=== PATIENT | female | born 1985 | race African-American/Black ===

== ENCOUNTER 2016-09-14 12:11 | Emergency (ER) | payer OTHER ==
[2016-09-14 12:17] VITALS: BP 114/71; BMI 27.9
[2016-09-14] MEDS ORDERED: ACETAMINOPHEN 325 MG TABLET (FP) PO ONE (12:56)
[2016-09-14] MEDS ORDERED: ACETAMINOPHEN 325 MG TABLET (FP) ONE (13:07)
--- NOTE | 2016-09-14 13:20 | PDOC ---
History of Present Illness - General Chief Complaint: Cold Symptoms Stated Complaint: FEVER, HEADACHE Time Seen by Provider: 09/14/16 12:39 History Source: Patient - History of Present Illness Timing/Duration: reports: other Associated Symptoms: reports: cough, fever/chills, headache, muscle aches. denies: earache, facial pain, nasal congestion, nasal drainage, shortness of breath, sore throat Past History - Past Medical History Allergies/Adverse Reactions: Allergies Allergy/AdvReac Type Severity Reaction Status Date / Time No Known Allergies Allergy Verified 09/14/16 12:17 Home Medications: Ambulatory Orders NK [No Known Home Medication] 09/14/16 Asthma: No Cancer: No Cardiac Disorders: No Diabetes: No HTN: No Suicide Attempt (Hx): No Seizures: No Thyroid Disease: No Other medical history: denies - Reproductive History (#): 6 Para: 3 - Immunization History Immunization Up to Date: Yes - Psycho/Social/Smoking Cessation Hx Anxiety: No Suicidal Ideation: No Smoking Status: No Smoking History: Never smoked Have you smoked in the past 12 months: No Number of Cigarettes Smoked Daily: 2 Information on smoking cessation initiated: No 'Breaking Loose' booklet given: 01/13/16 Hx Alcohol Use: No Drug/Substance Use Hx: No Substance Use Type: None Hx Substance Use Treatment: No Review of Systems - Review of Systems Constitutional: Yes: Chills, Fever, Malaise HEENTM: Yes: Throat Pain. No: Ear Pain Respiratory: Yes: Cough. No: Shortness of Breath ABD/GI: No: Diarrhea, Nausea, Vomiting *Physical Exam - Vital Signs Last Vital Signs Temp Pulse Resp BP Pulse Ox 100.7 F H 107 H 18 114/71 100 09/14/16 12:15 09/14/16 12:15 09/14/16 12:15 09/14/16 12:15 09/14/16 12:15 - Physical Exam General Appearance: Yes: Appropriately Dressed. No: Apparent Distress HEENT: positive: Normal Voice. negative: Scleral Icterus (R), Scleral Icterus ( L) Neck: positive: Supple. negative: Lymphadenopathy (R), Lymphadenopathy (L) Respiratory/Chest: positive: Lungs Clear, Normal Breath Sounds. negative: Respiratory Distress Cardiovascular: positive: S1, S2, Tachycardia Gastrointestinal/Abdominal: positive: Soft. negative: Tender Integumentary: positive: Dry, Warm Neurologic: positive: Fully Oriented, Alert, Normal Mood/Affect ED Treatment Course - Medications Given in the ED: ED Medications Discontinued Medications Generic Name Dose Route Start Last Admin Trade Name Nisa PRN Reason Stop Dose Admin Acetaminophen 650 mg 09/14/16 12:56 09/14/16 13:00 Tylenol - PO 09/14/16 12:57 650 mg ONCE ONE Administration Medical Decision Making - Medical Decision Making 09/14/16 13:13 31-year-old female, no significant history, here with body aches with headache, sore throat, cough and fever that started suddenly 3 days ago. No shortness of breath, nausea, vomiting, diarrhea or rash. Denies any sick contacts. Patient well-appearing with low-grade fever in ED, rest of exam unremarkable. Most likely viral syndrome, rule out influenza. Antipyretic in ED 09/14/16 13:14 09/14/16 13:17 09/14/16 14:57 Vitals improved. Dc w/ supportive treatment for m/l viral syndrome 09/14/16 15:02 *DC/Admit/Observation/Transfer Diagnosis at time of Disposition: Viral syndrome - Discharge Dispostion Disposition: HOME Condition at time of disposition: Improved - Referrals Referrals: Brittany Max [Primary Care Provider] - - Patient Instructions Printed Discharge Instructions: DI for Viral Syndrome Additional Instructions: Your influenza test was negative. Your symptoms are most likely viral. Rest maintain adequate hydration and take Motrin or Tylenol as needed for pain and/ or fever.
[2016-09-14 14:58] VITALS: PULSE 96; TEMP 97.2
== END 2016-09-14 15:36 | disposition home or self-care (01) ==
LOC: JERFT 12:11
DX: B34.9 Viral infection, unspecified (principal)
CPT/HCPCS: 87804; 99281-25

== ENCOUNTER 2017-01-24 22:23 | Emergency (ER) | payer OTHER ==
[2017-01-24 22:28] VITALS: BP 114/60; PULSE 90; TEMP 98.3; BMI 28.3
== END 2017-01-25 00:53 | disposition left against medical advice (07) ==
LOC: JER 22:23
DX: Z53.21 Procedure and treatment not carried out due to patient leaving prior to being seen by health care provider (principal)
CPT/HCPCS: 99281-25

== ENCOUNTER 2017-04-21 08:12 | Emergency (ER) | payer OTHER ==
[2017-04-21 08:20] VITALS: BP 125/2; PULSE 86; TEMP 98.7; BMI 29.9
--- NOTE | 2017-04-21 08:54 | PDOC ---
History of Present Illness - General Chief Complaint: Pain Stated Complaint: ABD CRAMPING Time Seen by Provider: 04/21/17 08:41 History Source: Patient - History of Present Illness Timing/Duration: reports: constant, getting worse Quality: reports: burning Abdominal Pain Onset Location: reports: LLQ, epigastric Past History - Past Medical History Allergies/Adverse Reactions: Allergies Allergy/AdvReac Type Severity Reaction Status Date / Time No Known Allergies Allergy Verified 04/21/17 08:20 Home Medications: Ambulatory Orders NK [No Known Home Medication] 09/14/16 Asthma: No Cancer: No Cardiac Disorders: No Diabetes: No HTN: No Seizures: No Thyroid Disease: Yes (RAN OUT MEDS 1 MO AGO) - Reproductive History (#): 6 Para: 3 - Immunization History Immunization Up to Date: Yes - Suicide/Smoking/Psychosocial Hx Smoking Status: No Smoking History: Current every day smoker Have you smoked in the past 12 months: No Number of Cigarettes Smoked Daily: 2 Information on smoking cessation initiated: No 'Breaking Loose' booklet given: 01/13/16 Hx Alcohol Use: No Drug/Substance Use Hx: No Substance Use Type: None Hx Substance Use Treatment: No Abd/GI Specific PMHX - Complaint Specific PMHX Colitis: No Diverticulitis: No Gall Bladder Disease: No GERD: No Hepatitis: No Irritable Bowel Synd (IBS): No Pancreatitis: No GI Ulcer Disease: No Review of Systems - Review of Systems Constitutional: No: Chills, Fever, Unintentional Wgt. Loss ABD/GI: Yes: Diarrhea. No: Constipated, Nausea, Vomiting : No: Dysuria *Physical Exam - Vital Signs Last Vital Signs Temp Pulse Resp BP Pulse Ox 98.7 F 86 20 125/2 100 04/21/17 08:16 04/21/17 08:16 04/21/17 08:16 04/21/17 08:16 04/21/17 08:16 - Physical Exam General Appearance: Yes: Appropriately Dressed. No: Apparent Distress HEENT: positive: Normal Voice Neck: positive: Supple Respiratory/Chest: positive: Lungs Clear, Normal Breath Sounds. negative: Respiratory Distress Cardiovascular: positive: Regular Rate, S1, S2 Gastrointestinal/Abdominal: positive: Normal Bowel Sounds, Tender (minimal ttp diffusely). negative: Distended, Guarding, Rebound Extremity: positive: Normal Inspection Integumentary: positive: Dry, Warm Neurologic: positive: Fully Oriented, Alert, Normal Mood/Affect Medical Decision Making - Medical Decision Making 04/21/17 08:54 31-year-old female, endorses history of abdominal pain for one year, presents with worsening pain this a.m. Patient states pain located to epigastric area and to left lower quadrant and that she has pain on a daily basis described as a pulling and burning sensation. States pain worse with food and better when she takes Zantac and Maalox. No nausea, vomiting. Also reports that she has had non-bloody diarrhea almost every day for the past year. No bright red blood per rectum, melena, bloating, excessive belching, fever, chills or unexplained weight loss. Patient has had multiple ER visits for abdominal pain and was told last year to follow-up with GI for possible endoscopy. Patient states she has since been to the [facility], but so far has only had blood work done and an ultrasound, which were unremarkable. States she came in today because pain worsened this a.m. Took Motrin with no relief. See exam Chronic abd pain w/ diarrhea Possible gastritis/GERD given hx Has had GI f/u w/ neg labs and US, no scope to date Admits she is on zantac, maalox and pepcid at home w/ some relief in sxs -dose of zantac/maalox in ED -encourage continued GI f/u for scope -to refrain for NSAID use 04/21/17 09:37 *DC/Admit/Observation/Transfer Diagnosis at time of Disposition: Chronic abdominal pain - Discharge Dispostion Disposition: HOME Condition at time of disposition: Good - Patient Instructions Printed Discharge Instructions: Gastritis Additional Instructions: The cause of your abdominal pain is unclear at this time. However, it could be due to gastritis or GERD based on her history. Continue taking your medications and follow with your [facility] watertender for possible endoscopy Please refrain form NSAIDs such as motrin, advil and alleve as can worsen symptoms
[2017-04-21] MEDS ORDERED: RANITIDINE HCL 150 MG TABLET (FP) PO ONE (09:20)
[2017-04-21] MEDS ORDERED: MAG HYDROX/AL HYDROX/SIMETH 30 ML UNIT-DOSE CUP PO ONE (09:20)
[2017-04-21] MEDS ORDERED: MAG HYDROX/AL HYDROX/SIMETH 30 ML UNIT-DOSE CUP ONE (09:24)
[2017-04-21] MEDS ORDERED: RANITIDINE HCL 150 MG TABLET (FP) ONE (09:24)
--- NOTE | 2017-04-21 09:40 | PDOC ---
*Physical Exam - Vital Signs Last Vital Signs Temp Pulse Resp BP Pulse Ox 98.7 F 86 20 125/2 100 04/21/17 08:16 04/21/17 08:16 04/21/17 08:16 04/21/17 08:16 04/21/17 08:16 ED Treatment Course - Medications Given in the ED: ED Medications Discontinued Medications Generic Name Dose Route Start Last Admin Trade Name Nisa PRN Reason Stop Dose Admin Al Hydroxide/Mg Hydroxide 30 ml 04/21/17 09:20 04/21/17 09:25 Mylanta Oral Suspension - PO 04/21/17 09:21 30 ml ONCE ONE Administration Ranitidine HCl 150 mg 04/21/17 09:20 04/21/17 09:25 Zantac - PO 04/21/17 09:21 150 mg ONCE ONE Administration *DC/Admit/Observation/Transfer Diagnosis at time of Disposition: Chronic abdominal pain - Discharge Dispostion Disposition: HOME Condition at time of disposition: Good - Prescriptions Prescriptions: Famotidine [Pepcid] 20 mg PO DAILY #30 tablet Ranitidine HCl [Zantac] 150 mg PO BID #30 tablet - Referrals Referrals: Brittany Max [Primary Care Provider] - - Patient Instructions Printed Discharge Instructions: Gastritis Additional Instructions: The cause of your abdominal pain is unclear at this time. However, it could be due to gastritis or GERD based on her history. Continue taking your medications and follow with your cooky packer for possible endoscopy Please refrain form NSAIDs such as motrin, advil and alleve as can worsen symptoms - Post Discharge Activity
== END 2017-04-21 09:46 | disposition home or self-care (01) ==
LOC: JER 08:12
DX: R10.84 Generalized abdominal pain (principal); G89.29 Other chronic pain
CPT/HCPCS: 99282-25

== ENCOUNTER 2017-05-27 16:07 | Emergency (ER) | payer OTHER ==
[2017-05-27 16:29] VITALS: BMI 30.2
[2017-05-27] MEDS ORDERED: SODIUM CHLORIDE 0.9% 1000 ML INFUS.BAG IV ONE (16:57)
--- NOTE | 2017-05-27 17:07 | PDOC ---
History of Present Illness <Tyree Gates - Last Filed: 05/27/17 20:59> - General History Source: Patient Exam Limitations: No Limitations - History of Present Illness Initial Comments: 05/27/17 16:59 Patient is a 32-year-old female history of GERD on omeprazole. Patient ambulatory to the ER with umbilical and epigastric pain and lower back pain which woke her up from sleep on Sunday at 4am. No nauea or vomiting, took tylenol for the pain then had two episodes of diarrhea. Pain is worse after eating. No fever, No menses for 4 years, has an IUD. She noted today that her stool was darker then normal. Allergies: No known allergies Family History: Non-contributory Social History: Denies smoking, alcohol use, or IVDU Vital signs on arrival are [notable for pulse of 77.] Review of Systems GENERAL/CONSTITUTIONAL: [No fever or chills. No weakness. No weight change.] HEAD, EYES, EARS, NOSE AND THROAT: [No change in vision. No ear pain or discharge. No sore throat. ] CARDIOVASCULAR: [No chest pain or shortness of breath.] RESPIRATORY: [No cough, wheezing, or hemoptysis.] GASTROINTESTINAL: [No nausea, vomiting, diarrhea or constipation. No rectal bleeding.] GENITOURINARY: [No dysuria, frequency, or change in urination.] MUSCULOSKELETAL: [No joint or muscle swelling or pain. No neck or back pain.] SKIN AND BREASTS: [No rash or easy bruising.] NEUROLOGIC: [No headache, vertigo, loss of consciousness, or loss of sensation.] PSYCHIATRIC: [No depression or anxiety.] ENDOCRINE: [No increased thirst. No abnormal weight change.] HEMATOLOGIC/LYMPHATIC: [No anemia, easy bleeding, or history of blood clots.] ALLERGIC/IMMUNOLOGIC: [No hives or skin allergy. No latex allergy.] Physical Exam: GENERAL: [The patient is awake, alert, and fully oriented, in no acute distress. ] HEAD: [Normal with no signs of trauma.] EYES: [Pupils equal, round and reactive to light, extraocular movements intact, sclera anicteric, conjunctiva clear.] ENT: [Ears normal, nares patent, oropharynx clear without exudates. Moist mucous membranes. No uvula deviation] NECK: [Normal range of motion, supple without lymphadenopathy, JVD, or masses.] LUNGS: [Breath sounds equal, clear to auscultation bilaterally. No wheezes, and no crackles.] HEART: [Regular rate and rhythm, normal S1 and S2 without murmur, rub or gallop. ] ABDOMEN: [Soft, tender to umbilical and epigastric region, normoactive bowel sounds. + gusrding, no rebound. No masses. No bruising or abrasions] RECTAL : MUSCULOSKELETAL: [Normal range of motion, no edema. No clubbing or cyanosis. No cords, erythema, or tenderness. No CVA Tenderness with fist.] NEUROLOGICAL: [Cranial nerves II through XII grossly intact. Normal speech, normal gait.] SKIN: [Warm, Dry, normal turgor, no rashes or lesions noted.] 05/27/17 17:11 <Maryam Church - Last Filed: 05/29/17 11:48> - General Chief Complaint: Pain, Acute Stated Complaint: PAIN Time Seen by Provider: 05/27/17 16:45 Past History <Tyree Gates - Last Filed: 05/27/17 20:59> - Past Medical History Asthma: No Cancer: No Cardiac Disorders: No CVA: No COPD: No DVT: No Diabetes: No HTN: No Seizures: No Thyroid Disease: Yes (RAN OUT MEDS 1 MO AGO) - Reproductive History (#): 6 Para: 3 - Immunization History Immunization Up to Date: Yes - Suicide/Smoking/Psychosocial Hx Smoking Status: No Smoking History: Never smoked Have you smoked in the past 12 months: No Number of Cigarettes Smoked Daily: 2 Information on smoking cessation initiated: No 'Breaking Loose' booklet given: 01/13/16 Hx Alcohol Use: No Drug/Substance Use Hx: No Substance Use Type: None Hx Substance Use Treatment: No <Maryam Church - Last Filed: 05/29/17 11:48> - Past Medical History Allergies/Adverse Reactions: Allergies Allergy/AdvReac Type Severity Reaction Status Date / Time No Known Allergies Allergy Verified 05/27/17 16:25 Home Medications: Ambulatory Orders Famotidine [Pepcid] 20 mg PO BID 05/27/17 Abd/GI Specific PMHX - Complaint Specific PMHX Colitis: No Diverticulitis: No Gall Bladder Disease: No GERD: No Hepatitis: No Irritable Bowel Synd (IBS): No Pancreatitis: No GI Ulcer Disease: No <Maryam Church - Last Filed: 05/29/17 11:48> *Physical Exam - Vital Signs Last Vital Signs Temp Pulse Resp BP Pulse Ox 99.0 F 61 18 113/72 100 05/27/17 19:44 05/27/17 19:44 05/27/17 19:44 05/27/17 19:44 05/27/17 19:44 <Tyree Gates - Last Filed: 05/27/17 20:59> - Vital Signs Last Vital Signs Temp Pulse Resp BP Pulse Ox 98.5 F 76 16 115/69 100 05/27/17 16:25 05/27/17 16:25 05/27/17 16:25 05/27/17 16:25 05/27/17 16:25 <Maryam Church - Last Filed: 05/29/17 11:48> ED Treatment Course - LABORATORY CBC & Chemistry Diagram: 05/27/17 17:20 05/27/17 17:20 - ADDITIONAL ORDERS Additional order review: Laboratory Results 05/27/17 05/27/17 05/27/17 17:30 17:20 17:20 Sodium 142 Potassium 3.6 Chloride 108 H Carbon Dioxide 27 Anion Gap 7 L BUN 13 D Creatinine 0.8 Creat Clearance w eGFR > 60 Random Glucose 78 Calcium 8.2 L Total Bilirubin 0.6 D AST 15 ALT 22 Alkaline Phosphatase 80 Total Protein 7.3 Albumin 3.9 Lipase 246 Urine Color Yellow Urine Appearance Clear Urine pH 6.0 Ur Specific [place] 1.026 Urine Protein Negative Urine Glucose (UA) Negative Urine Ketones Negative Urine Blood Negative Urine Nitrite Negative Urine Bilirubin Negative Urine Urobilinogen 2.0 H Urine HCG, Qual Negative Stool Occult Blood Negative 05/27/17 Unknown Influenza Types A,B Antigen ([facility]) - Final Nasopharyngeal Swab - Final 05/27/17 17:20 RBC 4.39 MCV 96.2 H MCHC 33.9 RDW 12.7 MPV 9.0 Neutrophils % 63.1 Lymphocytes % 28.3 Monocytes % 6.7 Eosinophils % 1.2 Basophils % 0.7 - Medications Given in the ED: ED Medications Discontinued Medications Generic Name Dose Route Start Last Admin Trade Name Freq PRN Reason Stop Dose Admin Acetaminophen 1,000 mg 05/27/17 19:29 05/27/17 20:00 Ofirmev Injection - IVPB 05/27/17 19:30 1,000 mg ONCE ONE Administration Al Hydroxide/Mg Hydroxide 30 ml 05/27/17 17:48 05/27/17 17:59 Mylanta Oral Suspension - PO 05/27/17 17:49 30 ml ONCE ONE Administration Pantoprazole Sodium 40 mg 05/27/17 17:14 05/27/17 17:27 Protonix Iv IVPUSH 05/27/17 17:15 40 mg ONCE ONE Administration Sodium Chloride 1,000 ml 05/27/17 16:57 05/27/17 17:21 Normal Saline - IV 05/27/17 16:58 1,000 ml ONCE ONE Administration <Tyree Gates - Last Filed: 05/27/17 20:59> - LABORATORY CBC & Chemistry Diagram: 05/27/17 17:20 05/27/17 17:20 <Maryam Church - Last Filed: 05/29/17 11:48> Medical Decision Making - Medical Decision Making 05/27/17 17:11 A/P: Patient here for evaluation of umbilical, epigastric pain and lower back pain. Vital Signs are stable. Plan: CBC, CMP Urinalysis, urine culture, urine preg Saline Lock Stool Guaiac Protonix and Maalox. 05/27/17 18:20 I am signing this patient out to my colleague: [MD Corona ] In brief, this patient is being seen in the ED for a chief complaint of: [ umbilical, epigastric and lower back pain for two days with diarrhea. No vomiting. I have completed the initial assessment interview note and have ordered: [labs, UA, stool guaiac, rectal exam. Protonix and Maalox ordered] Patient now with a headache, I have ordered IV Tylenol and flu swab, CT scan abdomen and pelvis with IV contrast. I have reviewed the following results: [Labs, urine analysis] Plan for disposition is as follows: [Pending <Maryam Church - Last Filed: 05/29/17 11:48> *DC/Admit/Observation/Transfer <Tyree Gates - Last Filed: 05/27/17 20:59> <Maryam Church - Last Filed: 05/29/17 11:48> Diagnosis at time of Disposition: Nausea and vomiting Qualifiers: Vomiting type: unspecified Vomiting Intractability: unspecified Qualified Code( s): R11.2 - Nausea with vomiting, unspecified Diarrhea Qualifiers: Diarrhea type: unspecified type Qualified Code(s): R19.7 - Diarrhea, unspecified Abdominal pain Qualifiers: Abdominal location: lower abdomen, unspecified Qualified Code(s): R10.30 - Lower abdominal pain, unspecified - Discharge Dispostion Disposition: HOME Condition at time of disposition: Stable - Referrals Referrals: Brittany Max [Primary Care Provider] - - Patient Instructions Printed Discharge Instructions: DI for Viral Gastroenteritis -- Adult - Post Discharge Activity
[2017-05-27] MEDS ORDERED: PANTOPRAZOLE SODIUM 40 MG VIAL IVPUSH ONE (17:14)
[2017-05-27] MEDS ORDERED: PANTOPRAZOLE SODIUM 40 MG VIAL ONE (17:22)
[2017-05-27 17:28] LABS: BASOPHIL 0.7 % (0-2.0); EOSINOPHIL 1.2 % (0-4.5); MCH 32.6 pg (25.7-33.7); MCHC 33.9 g/dl (32.0-36.0); MEAN CELL VOLUME 96.2 fl (80-96); NEUTROPHILS 63.1 % (42.8-82.8); PLATELET COUNT 236 K/MM3 (134-434); RDW 12.7 % (11.6-15.6); WHITE BLOOD COUNT 10.2 K/mm3 (4.0-10.0)
[2017-05-27 17:41] LABS: URINE APPEARANCE CLEAR; URINE BILIRUBIN NEGATIVE (NEGATIVE); URINE BLOOD NEGATIVE (NEGATIVE); URINE COLOR YELLOW; URINE GLUCOSE (UA) NEGATIVE (NEGATIVE); URINE KETONE NEGATIVE (NEGATIVE); URINE NITRITE NEGATIVE (NEGATIVE); URINE PROTEIN NEGATIVE (NEGATIVE)
[2017-05-27] MEDS ORDERED: MAG HYDROX/AL HYDROX/SIMETH 30 ML UNIT-DOSE CUP PO ONE (17:48)
[2017-05-27 17:52] LABS: ALBUMIN 3.9 g/dl (3.4-5.0); ANION GAP 7 (8-16); BILIRUBIN,TOTAL 0.6 mg/dL (0.2-1.0); CALCIUM 8.2 mg/dL (8.5-10.1); CO2 27 mmol/L (21-32); CREATININE 0.8 mg/dL (0.55-1.02); GLUCOSE,RANDOM 78 mg/dL (74-106); SGOT/AST 15 U/L (15-37); SGPT/ALT 22 U/L (12-78); TOT PROT 7.3 g/dl (6.4-8.2)
[2017-05-27 17:53] LABS: ALK PHOS 80 U/L (45-117)
[2017-05-27] MEDS ORDERED: MAG HYDROX/AL HYDROX/SIMETH 30 ML UNIT-DOSE CUP ONE (17:57)
--- NOTE | 2017-05-27 19:22 | PDOC ---
*Physical Exam - Vital Signs Last Vital Signs Temp Pulse Resp BP Pulse Ox 98.5 F 77 14 135/86 100 05/27/17 16:25 05/27/17 16:57 05/27/17 16:57 05/27/17 16:57 05/27/17 16:25 <Antione Zavala - Last Filed: 05/27/17 19:22> - Vital Signs Last Vital Signs Temp Pulse Resp BP Pulse Ox 99.0 F 61 18 113/72 100 05/27/17 19:44 05/27/17 19:44 05/27/17 19:44 05/27/17 19:44 05/27/17 19:44 <Tyree Gates - Last Filed: 05/27/17 21:01> ED Treatment Course - LABORATORY CBC & Chemistry Diagram: 05/27/17 17:20 05/27/17 17:20 - ADDITIONAL ORDERS Additional order review: Laboratory Results 05/27/17 05/27/17 05/27/17 17:30 17:20 17:20 Sodium 142 Potassium 3.6 Chloride 108 H Carbon Dioxide 27 Anion Gap 7 L BUN 13 D Creatinine 0.8 Creat Clearance w eGFR > 60 Random Glucose 78 Calcium 8.2 L Total Bilirubin 0.6 D AST 15 ALT 22 Alkaline Phosphatase 80 Total Protein 7.3 Albumin 3.9 Lipase 246 Urine Color Yellow Urine Appearance Clear Urine pH 6.0 Ur Specific [place] 1.026 Urine Protein Negative Urine Glucose (UA) Negative Urine Ketones Negative Urine Blood Negative Urine Nitrite Negative Urine Bilirubin Negative Urine Urobilinogen 2.0 H Urine HCG, Qual Negative Stool Occult Blood Negative 05/27/17 17:20 RBC 4.39 MCV 96.2 H MCHC 33.9 RDW 12.7 MPV 9.0 Neutrophils % 63.1 Lymphocytes % 28.3 Monocytes % 6.7 Eosinophils % 1.2 Basophils % 0.7 - Medications Given in the ED: ED Medications Discontinued Medications Generic Name Dose Route Start Last Admin Trade Name Griffinq PRN Reason Stop Dose Admin Al Hydroxide/Mg Hydroxide 30 ml 05/27/17 17:48 05/27/17 17:59 Mylanta Oral Suspension - PO 05/27/17 17:49 30 ml ONCE ONE Administration Pantoprazole Sodium 40 mg 05/27/17 17:14 05/27/17 17:27 Protonix Iv IVPUSH 05/27/17 17:15 40 mg ONCE ONE Administration Sodium Chloride 1,000 ml 05/27/17 16:57 05/27/17 17:21 Normal Saline - IV 05/27/17 16:58 1,000 ml ONCE ONE Administration <Antione Zavala - Last Filed: 05/27/17 19:22> - LABORATORY CBC & Chemistry Diagram: 05/27/17 17:20 05/27/17 17:20 - ADDITIONAL ORDERS Additional order review: Laboratory Results 05/27/17 05/27/17 05/27/17 17:30 17:20 17:20 Sodium 142 Potassium 3.6 Chloride 108 H Carbon Dioxide 27 Anion Gap 7 L BUN 13 D Creatinine 0.8 Creat Clearance w eGFR > 60 Random Glucose 78 Calcium 8.2 L Total Bilirubin 0.6 D AST 15 ALT 22 Alkaline Phosphatase 80 Total Protein 7.3 Albumin 3.9 Lipase 246 Urine Color Yellow Urine Appearance Clear Urine pH 6.0 Ur Specific [place] 1.026 Urine Protein Negative Urine Glucose (UA) Negative Urine Ketones Negative Urine Blood Negative Urine Nitrite Negative Urine Bilirubin Negative Urine Urobilinogen 2.0 H Urine HCG, Qual Negative Stool Occult Blood Negative 05/27/17 Unknown Influenza Types A,B Antigen ([facility]) - Final Nasopharyngeal Swab - Final 05/27/17 17:20 RBC 4.39 MCV 96.2 H MCHC 33.9 RDW 12.7 MPV 9.0 Neutrophils % 63.1 Lymphocytes % 28.3 Monocytes % 6.7 Eosinophils % 1.2 Basophils % 0.7 - RADIOLOGY Radiograph Interpretation: 05/27/17 21:00 EXAM: CT abdomen and pelvis with contrast IMAGES:457 DATE OF EXAM: 2017-05-27 19:53:11 REASON FOR EXAM: Umbilical and epigastric pain COMPARISON: None Findings: Mild gastroesophageal reflux. The liver, gallbladder, pancreas, adrenal glands, and spleen are unremarkable. No renal or urinary calculi. No AAA. No evidence for diverticulitis, small bowel obstruction, or free air. Normal appendix. Intrauterine device. *3.1 cm left ovarian cyst. THIS DOCUMENT HAS BEEN ELECTRONICALLY SIGNED Cesar Retana MD, 05/27/2017 20:33 EST - Medications Given in the ED: ED Medications Discontinued Medications Generic Name Dose Route Start Last Admin Trade Name Freq PRN Reason Stop Dose Admin Acetaminophen 1,000 mg 05/27/17 19:29 05/27/17 20:00 Ofirmev Injection - IVPB 05/27/17 19:30 1,000 mg ONCE ONE Administration Al Hydroxide/Mg Hydroxide 30 ml 05/27/17 17:48 05/27/17 17:59 Mylanta Oral Suspension - PO 05/27/17 17:49 30 ml ONCE ONE Administration Pantoprazole Sodium 40 mg 05/27/17 17:14 05/27/17 17:27 Protonix Iv IVPUSH 05/27/17 17:15 40 mg ONCE ONE Administration Sodium Chloride 1,000 ml 05/27/17 16:57 05/27/17 17:21 Normal Saline - IV 05/27/17 16:58 1,000 ml ONCE ONE Administration <Tyree Gates - Last Filed: 05/27/17 21:01> Medical Decision Making - Medical Decision Making 05/27/17 19:22 Chronic abdominal pain patient states different than previous episodes no response to pain medications CT with IV contrast pending Dr. Corona to follow-up results. <Antione Zavala - Last Filed: 05/27/17 19:22> *DC/Admit/Observation/Transfer <Antione Zavala - Last Filed: 05/27/17 19:22> <Tyree Gates - Last Filed: 05/27/17 21:01> - Referrals Referrals: Brittany Max [Primary Care Provider] - - Patient Instructions - Post Discharge Activity
[2017-05-27] MEDS ORDERED: ACETAMINOPHEN 1000 MG/100 ML VIAL (NON FORMULARY) IVPB ONE (19:29)
[2017-05-27 19:44] VITALS: BP 113/72; PULSE 61; TEMP 99
[2017-05-27] MEDS ORDERED: ACETAMINOPHEN INJECTION 100 ML IVPB ONE (20:10)
--- NOTE | 2017-05-27 21:16 | PDOC ---
*Physical Exam - Vital Signs Last Vital Signs Temp Pulse Resp BP Pulse Ox 99.0 F 61 18 113/72 100 05/27/17 19:44 05/27/17 19:44 05/27/17 19:44 05/27/17 19:44 05/27/17 19:44 ED Treatment Course - LABORATORY CBC & Chemistry Diagram: 05/27/17 17:20 05/27/17 17:20 - ADDITIONAL ORDERS Additional order review: Laboratory Results 05/27/17 05/27/17 05/27/17 17:30 17:20 17:20 Sodium 142 Potassium 3.6 Chloride 108 H Carbon Dioxide 27 Anion Gap 7 L BUN 13 D Creatinine 0.8 Creat Clearance w eGFR > 60 Random Glucose 78 Calcium 8.2 L Total Bilirubin 0.6 D AST 15 ALT 22 Alkaline Phosphatase 80 Total Protein 7.3 Albumin 3.9 Lipase 246 Urine Color Yellow Urine Appearance Clear Urine pH 6.0 Ur Specific Harman 1.026 Urine Protein Negative Urine Glucose (UA) Negative Urine Ketones Negative Urine Blood Negative Urine Nitrite Negative Urine Bilirubin Negative Urine Urobilinogen 2.0 H Urine HCG, Qual Negative Stool Occult Blood Negative 05/27/17 Unknown Influenza Types A,B Antigen ([facility]) - Final Nasopharyngeal Swab - Final 05/27/17 17:20 RBC 4.39 MCV 96.2 H MCHC 33.9 RDW 12.7 MPV 9.0 Neutrophils % 63.1 Lymphocytes % 28.3 Monocytes % 6.7 Eosinophils % 1.2 Basophils % 0.7 - Medications Given in the ED: ED Medications Discontinued Medications Generic Name Dose Route Start Last Admin Trade Name Griffinq PRN Reason Stop Dose Admin Acetaminophen 1,000 mg 05/27/17 19:29 05/27/17 20:00 Ofirmev Injection - IVPB 05/27/17 19:30 1,000 mg ONCE ONE Administration Al Hydroxide/Mg Hydroxide 30 ml 05/27/17 17:48 05/27/17 17:59 Mylanta Oral Suspension - PO 05/27/17 17:49 30 ml ONCE ONE Administration Pantoprazole Sodium 40 mg 05/27/17 17:14 05/27/17 17:27 Protonix Iv IVPUSH 05/27/17 17:15 40 mg ONCE ONE Administration Sodium Chloride 1,000 ml 05/27/17 16:57 05/27/17 17:21 Normal Saline - IV 05/27/17 16:58 1,000 ml ONCE ONE Administration Medical Decision Making - Medical Decision Making 05/27/17 21:11 Patient endorsed to me to follow CT Scan and disposition. Patient seen and evaluated. She currently has no complaints of pain, nausea, vomiting, diarrhea. CT scan results d/w the patient noted to have a 3.1 left ovarian cyst. She is well connected with [facility]. She will call to make appointments for follow-up for the ovarian cyst tomorrow. I discussed the physical exam findings, ancillary test results and final diagnoses with the patient. I answered all of the patient's questions. The patient was satisfied with the care received and felt comfortable with the discharge plan and treatment plan. The Patient agrees to follow up with the primary care physician within 24-72 hours. 05/28/17 05:32 *DC/Admit/Observation/Transfer Diagnosis at time of Disposition: Nausea and vomiting Qualifiers: Vomiting type: unspecified Vomiting Intractability: unspecified Qualified Code( s): R11.2 - Nausea with vomiting, unspecified Diarrhea Qualifiers: Diarrhea type: unspecified type Qualified Code(s): R19.7 - Diarrhea, unspecified Abdominal pain Qualifiers: Abdominal location: lower abdomen, unspecified Qualified Code(s): R10.30 - Lower abdominal pain, unspecified - Discharge Dispostion Disposition: HOME Condition at time of disposition: Stable - Referrals Referrals: Brittany Max [Primary Care Provider] - - Patient Instructions Printed Discharge Instructions: DI for Viral Gastroenteritis -- Adult - Post Discharge Activity
[2017-05-27 23:12] LABS: URINE LEUK ESTERASE Negative (NEGATIVE)
== END 2017-05-27 21:43 | disposition home or self-care (01) ==
LOC: JER 16:07 → JERFT 16:07 → JER 21:43
PROC: 3E033NZ Introduction of Analgesics, Hypnotics, Sedatives into Peripheral Vein, Percutaneous Approach (ICD-10-PCS; principal; 2017-05-27)
PROC: 3E033GC Introduction of Other Therapeutic Substance into Peripheral Vein, Percutaneous Approach (ICD-10-PCS; 2017-05-27)
DX: N83.202 Unspecified ovarian cyst, left side (principal); K21.9 Gastro-esophageal reflux disease without esophagitis
CPT/HCPCS: 36415; 72193-TC; 74160-TC; 80053; 81003; 82272; 83690; 84703; 85025; 87086; 87804; 96374; 96375; 99282-25

== ENCOUNTER 2017-06-30 10:19 | Emergency (ER) | payer OTHER ==
[2017-06-30 10:45] VITALS: BP 110/48; PULSE 85; TEMP 99.1; BMI 41.9
[2017-06-30] MEDS ORDERED: TOBRAMYCIN 0.3% OPHTH SOLN 5 ML BOTTLE OD ONE (11:15)
[2017-06-30] MEDS ORDERED: TOBRAMYCIN 0.3% OPHTH SOLN 5 ML BOTTLE ONE (11:26)
--- NOTE | 2017-06-30 11:35 | PDOC ---
History of Present Illness - General Chief Complaint: Cold Symptoms Stated Complaint: PINK EYE, THROAT PAIN, FEVER Time Seen by Provider: 06/30/17 11:04 History Source: Patient Exam Limitations: No Limitations - History of Present Illness Initial Comments: 06/30/17 11:21 Patient is here with complaints of Tmax fever this morning 103, runny nose, sore throat pain, body aches. States also had conjunctivitis in her right eye. Onset was 2 days ago and was crusted shut with yellow drainage this morning. Take Tylenol which helped resolve some of the body aches but still feels severe pain to throat Timing/Duration: reports: getting worse Severity: reports: moderate Associated Symptoms: reports: cough, fever/chills, headache, muscle aches, nasal drainage, sore throat Past History - Travel Traveled outside of the country in the last 30 days: No Close contact w/someone who was outside of country & ill: No - Past Medical History Allergies/Adverse Reactions: Allergies Allergy/AdvReac Type Severity Reaction Status Date / Time No Known Allergies Allergy Verified 05/27/17 16:25 Home Medications: Ambulatory Orders Famotidine [Pepcid] 20 mg PO BID 05/27/17 Azithromycin [Zithromax -] 250 mg PO UTDICT #6 tab 06/30/17 Tobramycin 0.3% Ophth Soln [Tobrex Ophthalmic Solution -] 2 drop OS QID #1 drops 06/30/17 Asthma: No Cancer: No Cardiac Disorders: No CVA: No COPD: No DVT: No Diabetes: No HTN: No Seizures: No Thyroid Disease: Yes - Reproductive History (#): 6 Para: 3 - Immunization History Immunization Up to Date: Yes - Suicide/Smoking/Psychosocial Hx Smoking Status: No Smoking History: Current every day smoker Have you smoked in the past 12 months: No Number of Cigarettes Smoked Daily: 4 Information on smoking cessation initiated: No 'Breaking Loose' booklet given: 01/13/16 Hx Alcohol Use: No Drug/Substance Use Hx: No Substance Use Type: None Hx Substance Use Treatment: No Review of Systems - Review of Systems Able to Perform ROS?: Yes Is the patient limited Tamazight proficient: Yes Constitutional: Yes: Symptoms Reported, See HPI, Malaise. No: Loss of Appetite HEENTM: Yes: Symptoms Reported, See HPI, Eye Pain, Tearing (with yellow drainage ) Respiratory: Yes: Symptoms reported, See HPI, Cough Cardiac (ROS): No: Symptoms Reported ABD/GI: Yes: See HPI, Nausea. No: Symptoms Reported : No: Symptoms Reported Musculoskeletal: Yes: Symptoms Reported, See HPI, Back Pain Neurological: Yes: Symptoms reported, See HPI, Headache All Other Systems: Reviewed and Negative *Physical Exam - Vital Signs Last Vital Signs Temp Pulse Resp BP Pulse Ox 99.1 F 85 20 110/48 97 06/30/17 10:41 06/30/17 10:41 06/30/17 10:41 06/30/17 10:41 06/30/17 10:41 - Physical Exam General Appearance: Yes: Nourished, Appropriately Dressed, Apparent Distress, Mild Distress HEENT: positive: TMs Normal (congested but landmarks easily visualized), Pharynx Normal, Rhinorrhea, Sinus Tenderness, Other (erythematous with yellow crusting drainage noted to right eye. No periorbital tenderness) Neck: positive: Supple, Lymphadenopathy (R), Lymphadenopathy (L) Respiratory/Chest: positive: Lungs Clear (course but clear) Cardiovascular: positive: Regular Rate Gastrointestinal/Abdominal: positive: Normal Bowel Sounds, Soft. negative: Tender Musculoskeletal: positive: Normal Inspection Integumentary: positive: Dry, Warm, Pale Neurologic: positive: burning supervisor II-XII NML intact, Fully Oriented, Alert, Normal Mood/ Affect, Normal Response Progress Note - Progress Note Progress Note: Conjunctivitis, influenza testing and strep testing *DC/Admit/Observation/Transfer Diagnosis at time of Disposition: Conjunctivitis Qualifiers: Conjunctivitis type: unspecified Laterality: right Qualified Code(s): H10.9 - Unspecified conjunctivitis Pharyngitis Qualifiers: Pharyngitis/tonsillitis etiology: unspecified etiology Qualified Code(s): J02.9 - Acute pharyngitis, unspecified - Discharge Dispostion Disposition: HOME Condition at time of disposition: Stable Admit: No - Prescriptions Prescriptions: Azithromycin [Zithromax -] 250 mg PO UTDICT #6 tab - Referrals Referrals: Brittany Max [Primary Care Provider] - - Patient Instructions Printed Discharge Instructions: DI for Conjunctivitis Additional Instructions: Rest, avoid rubbing eyes Wash hands frequently as this is very contagious Wash hands, use eye drops as directed, wash hands after use Do not share eyedrops with other person to may become infected as this will infect them Avoid contact with others until redness and discharge is gone from eyes. Followup with ophthalmology or private physician as needed Tobramycin drops 2 drops to affected eye 4 times a day for 5 days - Post Discharge Activity Forms/Work/School Notes: Back to Work
== END 2017-06-30 12:54 | disposition home or self-care (01) ==
LOC: JERFT 10:19 → JER 10:19 → JERFT 12:54
DX: J02.9 Acute pharyngitis, unspecified (principal); H10.31 Unspecified acute conjunctivitis, right eye
CPT/HCPCS: 87070; 87430; 87804; 99281-25